=== PATIENT | female | born 1955 | race Caucasian/White ===

== ENCOUNTER → 2016-06-02 | Outpatient (CLI) | payer BC | LOC: RAD 09:55 | PROVIDERS: ATTEND Family Medicine | DX: N64.89 Other specified disorders of breast (principal); N63 Unspecified lump in breast | CPT/HCPCS: 76642; G0204 ==

== ENCOUNTER → 2016-06-14 | Outpatient (CLI) | payer BC | LOC: RAD 12:24 | PROVIDERS: ATTEND Family Medicine | DX: Z01.818 Encounter for other preprocedural examination (principal); N63 Unspecified lump in breast | CPT/HCPCS: 19083; 36415; 85610; 85730; G0206 ==

== ENCOUNTER 2016-06-28 08:37 | Day surgery (SDC) | payer BC ==
[~2016-06-28] VITALS: Ht 162.6 cm; Wt 88000.0 kg
[~2016-06-28 08:37] MED LIST: LACTATED RINGERS 1,000 ML IV SCH; ONDANSETRON 2 MG/ML (Z0FRAN) 2 ML VIAL ONE; SCOPOLAMINE 1.5 MG (TRANSDERM-SCOP) PATCH TD ONE; SODIUM CHLORIDE FLUSH 3 ML SYR IV PRN; ceFAZolin 2,000 MG in WATER (STERILE) FOR INJECTION 20 ML IV SCH; diphenhydrAMINE 50 MG/ML INJ (BENADRYL) ONE
[2016-06-28 08:57] VITALS: BP 138/83
[2016-06-28] MEDS ORDERED: BUPIVACAINE/EPINEPHRINE 0.5%-1:200,000 (MARCAINE) 30 ML VIAL INJ ONE (10:57)
[2016-06-28] MEDS ORDERED: METHYLENE BLUE 1% 10 MG/ML 10 ML VIAL ONE (10:57)
[2016-06-28] MEDS ORDERED: LIDOCAINE/EPINEPHRINE 1% 1:100,000 (XYLOCAINE) 30 ML VIAL INJ ONE (10:57)
[2016-06-28] MEDS ORDERED: ALFENTANIL 500 MCG/ML (ALFENTA) 5 ML AMP IV ONE (11:05)
[2016-06-28] MEDS ORDERED: MIDAZOLAM 2 MG/2 ML (VERSED) VIAL ONE (11:05)
[2016-06-28] MEDS ORDERED: PROPOFOL 20 ML IV ONE (11:05)
[2016-06-28] MEDS ORDERED: diphenhydrAMINE 50 MG/ML INJ (BENADRYL) ONE (11:32)
[2016-06-28] MEDS ORDERED: ONDANSETRON 2 MG/ML (Z0FRAN) 2 ML VIAL ONE ×2 (11:32→14:21)
[2016-06-28] MEDS ORDERED: BUPIVACAINE/EPINEPHRINE 0.25%-1:200,000 (MARCAINE) 30 ML VIAL INJ ONE (11:33)
[2016-06-28] MEDS ORDERED: KETOROLAC 60 MG/2 ML (TORADOL) VIAL IM ONE (13:13)
[2016-06-28] MEDS ORDERED: PROMETHAZINE 25 MG/ML (PHENERGAN) 1 ML VIAL ONE (13:40)
[2016-06-28 14:04] VITALS: BP 149/88
[2016-06-28] MEDS ORDERED: KETOROLAC 30 MG/ML (TORADOL) 1 ML VIAL ONE (14:21)
--- NOTE | 2016-06-28 14:27 | NUR ---
Zofran 4mg and [id number] iv for nausea and pain. pt has emesis of 250 cc and c/o pain 12/14. spouse at chair side. sipping sprite
[2016-06-28] MEDS ORDERED: MEPERIDINE 25 MG/ML (DEMEROL) SYRINGE ONE (14:37)
[2016-06-28] MEDS ORDERED: morphine INJ 2 MG/ML 1 ML SYRINGE ONE (14:39)
--- NOTE | 2016-06-28 14:40 | NUR ---
Morphine 2mg ivp for pain 12/14. Hola Montgomery RIPENING ROOM HAND at chairside
[2016-06-28 14:42] VITALS: BP 129/82
[2016-06-28] MEDS ORDERED: KETOROLAC 30 MG/ML (TORADOL) 1 ML VIAL IV PRN (15:05)
[2016-06-28] MEDS ORDERED: METOCLOPRAMIDE 10 MG/2 ML (REGLAN) VIAL IV PRN (15:05)
[2016-06-28] MEDS ORDERED: morphine INJ 4 MG/ML 1 ML SYRINGE IV PRN (15:05)
[2016-06-28] MEDS ORDERED: ONDANSETRON 2 MG/ML (Z0FRAN) 2 ML VIAL IV PRN (15:05)
--- NOTE | 2016-06-28 15:07 | NUR ---
Spoke with Dr García per Phone. Reglan 10mg iv given for nausea.
[2016-06-28 15:10] VITALS: BP 122/71
--- NOTE | 2016-06-28 15:10 | NUR ---
emesis 100cc
[2016-06-28 15:37] VITALS: BP 122/71
[2016-06-28 15:40] VITALS: BP 94/50
== END 2016-06-28 16:00 | disposition home or self-care (01) ==
LOC: ASC 08:37 → EDSTATUS 09:30 → ASC 16:00
PROVIDERS: ATTEND Surgery
DX: C50.911 Malignant neoplasm of unspecified site of right female breast (principal); I10 Essential (primary) hypertension; Z79.890 Hormone replacement therapy
CPT/HCPCS: 19281; 19301; 38792; 78195; J1200; J1885; J2250; J2550; J7120; Q9968

== ENCOUNTER 2016-07-03 10:10 | Day surgery (SDC) | payer BC ==
[~2016-07-03] VITALS: Ht 162.6 cm; Wt 90.9 kg
[~2016-07-03 10:10] MED LIST changes: +BUPIVACAINE/EPINEPHRINE 0.5%-1:200,000 (MARCAINE) 30 ML VIAL INJ ONE; +LIDOCAINE/EPINEPHRINE 1% 1:100,000 (XYLOCAINE) 30 ML VIAL INJ ONE; +METHYLENE BLUE 1% 10 MG/ML 10 ML VIAL ONE; -ONDANSETRON 2 MG/ML (Z0FRAN) 2 ML VIAL ONE; -SCOPOLAMINE 1.5 MG (TRANSDERM-SCOP) PATCH TD ONE; -ceFAZolin 2,000 MG in WATER (STERILE) FOR INJECTION 20 ML IV SCH; -diphenhydrAMINE 50 MG/ML INJ (BENADRYL) ONE
[2016-07-03 10:18] VITALS: BP 157/80
[2016-07-03] MEDS ORDERED: SCOPOLAMINE 1.5 MG (TRANSDERM-SCOP) PATCH TD ONE (10:50)
[2016-07-03] MEDS ORDERED: ONDANSETRON 2 MG/ML (Z0FRAN) 2 ML VIAL ONE (11:14)
[2016-07-03] MEDS ORDERED: diphenhydrAMINE 50 MG/ML INJ (BENADRYL) ONE (11:14)
[2016-07-03] MEDS ORDERED: PROPOFOL 20 ML IV ONE (11:14)
[2016-07-03] MEDS ORDERED: ALFENTANIL 500 MCG/ML (ALFENTA) 5 ML AMP IV ONE ×2 (11:15)
[2016-07-03] MEDS ORDERED: MIDAZOLAM 2 MG/2 ML (VERSED) VIAL ONE (11:15)
[2016-07-03 12:17] VITALS: BP 142/77
[2016-07-03] MEDS ORDERED: METOCLOPRAMIDE 10 MG/2 ML (REGLAN) VIAL IV PRN (12:38)
[2016-07-03] MEDS ORDERED: morphine INJ 4 MG/ML 1 ML SYRINGE IV PRN (12:38)
[2016-07-03] MEDS ORDERED: ONDANSETRON 2 MG/ML (Z0FRAN) 2 ML VIAL IV PRN (12:38)
[2016-07-03 13:19] VITALS: BP 137/76
== END 2016-07-03 13:23 | disposition home or self-care (01) ==
LOC: ASC 10:10
PROVIDERS: ATTEND Surgery
DX: C50.411 Malignant neoplasm of upper-outer quadrant of right female breast (principal)
CPT/HCPCS: 19301; J1200; J2250; J7120